=== PATIENT | female | born 1950 ===

== ENCOUNTER 2017-10-29 09:29 | Emergency (ER) | payer OTHER ==
[~2017-10-29] VITALS: Ht 157.5 cm; Wt 70.8 kg
[2017-10-29] MEDS ORDERED: METFORMIN HCL500 MG (09:37)
[2017-10-29] MEDS ORDERED: BENAZEPRIL HCL5 MG (09:38)
[2017-10-29] MEDS ORDERED: LANTUS SOL100 UNIT/1 (09:38)
[2017-10-29] MEDS ORDERED: PLAVIX300 MG (09:38)
== END 2017-10-29 15:08 | disposition home or self-care (01) ==
LOC: ER 09:29
DX: N39.0 Urinary tract infection, site not specified (principal); R31.0 Gross hematuria